=== PATIENT | male | born 1995 | race Caucasian/White ===

== ENCOUNTER → 2016-05-27 | Outpatient (CLI) | payer OTHER ==
--- NOTE | 2016-05-27 07:57 | US ---
EXAMINATION TYPE: US abdomen complete DATE OF EXAM: 05/27/2016 7:39 AM COMPARISON: on PACS CLINICAL HISTORY: K92.0 Hematemesis, R11.2 N V, R10.84 Abd Pain. Patient states vomiting with blood. EXAM MEASUREMENTS: Liver Length: 15.4 cm Gallbladder Wall: 0.2 cm CHD: 0.2 cm Spleen: 11.9 cm Right Kidney: 10.2 x 5.8 x 5.1 cm Left Kidney: 10.3 x 6.0 x 4.9 cm Suboptimal exam due to bowel gas Pancreas: not seen due to overlying bowel gas Liver: wnl Gallbladder: wnl Evidence for sonographic Good's sign: neg CHD: wnl Spleen: wnl Right Kidney: wnl Left Kidney: wnl Upper IVC: seen Abd Aorta: not well seen due to overlying bowel gas The liver is homogenous. The intrahepatic portion of the IVC and proximal abdominal aorta are within normal limits. There is no evidence of cholelithiasis. Common bile duct is unremarkable. The visu alized portions of the pancreas are homogenous. The spleen is unremarkable. Kidneys are symmetric a nd free of hydronephrosis. No renal lesions are seen. IMPRESSION: No distinct abnormality although examination is somewhat limited.
== END | disposition home or self-care (01) ==
LOC: RADUSWWP 07:04
PROVIDERS: ATTEND Pediatrics Adolescent Medicine
DX: K92.0 Hematemesis (principal); R10.84 Generalized abdominal pain
CPT/HCPCS: 76700

== ENCOUNTER 2017-01-28 08:47 | Emergency (ER) | payer OTHER ==
[2017-01-28 08:52] VITALS: BP 149/83; PULSE 100; RESP 20; TEMP 98.1
--- NOTE | 2017-01-28 09:10 | ED ---
Wound/Laceration HPI - General Chief Complaint: Wound/Laceration Stated Complaint: left thumb laceration Time Seen by Provider: 01/28/17 09:04 Source: patient, RN notes reviewed, old records reviewed Mode of arrival: ambulatory Limitations: no limitations - History of Present Illness Initial Comments: 21-year-old male presents emergency Department chief complaint of left thumb laceration. Patient reports he was at work cutting holes with a knife and that night slipped and cut the proximal aspect of his left thumb. He reports he has full range of motion with thumb. Last tetanus was one year ago. Patient states that he has no peripheral paresthesias. Patient denies any recent fever, chills, shortness of breath, chest pain, back pain, abdominal pain, nausea vomiting, numbness or tingling, dysuria or hematuria, constipation or diarrhea, headaches or visual changes, or any other current symptoms - Related Data Home Medications Medication Instructions Recorded Confirmed No Known Home Medications [No 01/28/17 01/28/17 Known Home Medications] Allergies Allergy/AdvReac Type Severity Reaction Status Date / Time No Known Allergies Allergy Verified 01/28/17 09:20 Review of Systems ROS Statement: Those systems with pertinent positive or pertinent negative responses have been documented in the HPI. ROS Other: All systems not noted in ROS Statement are negative. Past Medical History Past Medical History: No Reported History History of Any Multi-Drug Resistant Organisms: None Reported Past Surgical History: No Surgical Hx Reported Past Psychological History: Anxiety Smoking Status: Former smoker Past Alcohol Use History: None Reported Past Drug Use History: None Reported General Exam - General Exam Comments Initial Comments: 21-year-old male. No acute distress. Limitations: no limitations General appearance: alert, in no apparent distress Head exam: Present: atraumatic, normocephalic, normal inspection Eye exam: Present: normal appearance, PERRL, EOMI. Absent: scleral icterus, conjunctival injection, periorbital swelling ENT exam: Present: normal exam, mucous membranes moist Neck exam: Present: normal inspection. Absent: tenderness, meningismus, lymphadenopathy Respiratory exam: Present: normal lung sounds bilaterally. Absent: respiratory distress, wheezes, rales, rhonchi, stridor Cardiovascular Exam: Present: regular rate, normal rhythm, normal heart sounds. Absent: systolic murmur, diastolic murmur, rubs, gallop, clicks GI/Abdominal exam: Present: soft, normal bowel sounds. Absent: distended, tenderness, guarding, rebound, rigid Extremities exam: Present: normal inspection, full ROM, normal capillary refill. Absent: tenderness, pedal edema, joint swelling, calf tenderness Left Upper Arm exam: Present: normal inspection, full ROM Elbow exam: Present: normal inspection, full ROM Forearm Wrist exam: Present: normal inspection, full ROM Hand Wrist exam: Present: full ROM (Patient is a 1 cm laceration over the proximal thumb. Laceration is superficial. No tendon involvement. Full range of motion noted. Normal capillary refill.), laceration. Absent: normal inspection Neuro motor exam: Present: wrist extension intact, thumb opposition intact, thumb IP flexion intact, thumb adduction intact, fingers 2-5 abduction intact Neurosensory exam: Present: 2-point discrimination Back exam: Present: normal inspection Neurological exam: Present: alert, oriented X3, CN II-XII intact Psychiatric exam: Present: normal affect, normal mood Skin exam: Present: warm, dry, intact, normal color. Absent: rash Course Vital Signs 01/28/17 08:49 Temperature 98.1 F Pulse Rate 100 Respiratory 20 Rate Blood Pressure 149/83 O2 Sat by Pulse 98 Oximetry Procedures - Laceration Laceration #1 Size (cm): 1 Description: linear Anesthetic Used: lidocaine 1% Anesthesia Technique: local infiltration Amount (mls): 3 Pre-repair: wound explored Type of Sutures: nylon Size of Sutures: 5-0 Number of Sutures: 3 Technique: simple, interrupted Patient Tolerated Procedure: well, no complications Medical Decision Making - Medical Decision Making 21 IS emergency room to plan of left thumb laceration. Laceration measures approximately 1.5 cm. Laceration was irrigated and closed with 340 sutures. Discussed monitoring for any signs of infection including redness swelling or drainage. Well-developed proximal knee. No tendon involvement, patient has full range motion of the finger. Normal capillary refill. Patient will be discharged at this time with suture instructions. Patient understands history plan will comply. Disposition Clinical Impression: Thumb laceration Disposition: HOME SELF-CARE Condition: Good Instructions: Finger Laceration (ED) Additional Instructions: Please return to the emergency room in 8-10 days to have sutures removed. Please leave wound covered for the first 24-48 hours and then leave open to air after that time. Please use clean soap and water to clean the suture area to prevent scabbing over the top of your sutures. Please watch for any signs of infection which may include but not limited to increased pain, swelling, redness , fever or chills. Please return to the emergency room if any signs of infection do occur. Please return to the emergency room for any other concerns or complications. Referrals: Linh Rubalcava MD [Primary Care Provider] - 1-2 days Time of Disposition: 09:34
== END 2017-01-28 09:50 | disposition home or self-care (01) ==
LOC: EC 08:47
DX: S61.012A Laceration without foreign body of left thumb without damage to nail, initial encounter (principal); Z87.891 Personal history of nicotine dependence; W26.0XXA Contact with knife, initial encounter; Y99.0 Civilian activity done for income or pay; Y93.89 Activity, other specified; Y92.69 Other specified industrial and construction area as the place of occurrence of the external cause
CPT/HCPCS: 12001; 99283

== ENCOUNTER → 2017-09-25 | Outpatient (CLI) | payer MEDICAID, OTHER ==
--- NOTE | 2017-09-25 08:14 | US ---
EXAMINATION TYPE: US abdomen limited DATE OF EXAM: 09/25/2017 COMPARISON: US CLINICAL HISTORY: R10.84 abdominal pain, R11.10 vomiting; epigastric pain with or without food EXAM MEASUREMENTS: Liver Length: 15.0 cm Gallbladder Wall: 0.2 cm CBD: 0.4 cm Right Kidney: 9.5 x 6.1 x 4.7 cm Pancreas: small size and hyperechoic Liver: wnl Gallbladder: hyperechoic anterior wall polyp = 0.2 x 0.3 x 0.3cm with "comet tail" artifact Evidence for sonographic Good's sign: no CBD: wnl Right Kidney: wnl IMPRESSION: 1. Probable gallbladder polyp. 2. No gallstones or acute cholecystitis evident.
== END | disposition home or self-care (01) ==
LOC: RADUSWWP 07:11
PROVIDERS: ATTEND Pediatrics Adolescent Medicine
DX: R11.10 Vomiting, unspecified (principal); R10.84 Generalized abdominal pain
CPT/HCPCS: 76705

== ENCOUNTER → 2019-01-24 | Outpatient (CLI) | payer OTHER ==
--- NOTE | 2019-01-24 12:46 | XR ---
Right elbow HISTORY: Trauma and pain 3 views of the right elbow Bone mineralization, joint spaces and alignment are maintained. No evident pathologic joint effusion. IMPRESSION: No fracture or dislocation. Follow-up as indicated.
== END ==
LOC: RADXRMAIN 12:20
PROVIDERS: ATTEND Emergency Medicine
DX: S50.01XA Contusion of right elbow, initial encounter (principal)

== ENCOUNTER → 2019-01-31 | Outpatient (CLI) | payer OTHER ==
--- NOTE | 2019-01-31 10:57 | XR ---
EXAMINATION TYPE: XR elbow complete RT DATE OF EXAM: 01/31/2019 COMPARISON: NONE HISTORY: Pain FINDINGS: Three views of the elbow demonstrate no pathologic joint effusion. The osseous structures are intact . There is no acute fracture or dislocation. IMPRESSION: 1. No acute fracture or dislocation. If symptoms persist follow-up study in 7 to 10 days could be ob tained.
== END | disposition home or self-care (01) ==
LOC: RADXRMAIN 10:20
PROVIDERS: ATTEND Emergency Medicine
DX: S50.01XD Contusion of right elbow, subsequent encounter (principal)

== ENCOUNTER 2022-06-28 19:00 | Emergency (ER) | payer MEDICAID, OTHER ==
[2022-06-28 19:12] VITALS: BP 130/92; PULSE 96; RESP 20; TEMP 98.7
--- NOTE | 2022-06-28 19:14 | ED ---
General Adult HPI - General Chief complaint: Anxiety Stated complaint: panic attacks Time Seen by Provider: 06/28/22 19:13 Source: patient Mode of arrival: ambulatory Limitations: no limitations - History of Present Illness Initial comments: Patient presents to the ED complaining of anxiety. Patient states that he recently found out that his girlfriend was , and he states that he he has felt very anxious for the past 3 days or so. Patient states that they have lost pregnancies in the past, and he suspects that is why he is feeling anxious. Patient admits to having symptoms of anxiety and nausea. Patient admits to occasional marijuana use, but he denies any marijuana use today. Patient denies any other illicit drug use or alcohol use. Patient denies medication abuse or overdose. Patient denies suicidal ideations, homicidal ideations, hallucinations, fever or chills, any pain, dyspnea, dizziness, vomiting or diarrhea, or any other symptoms or complaints. - Related Data Previous Rx's Medication Instructions Recorded LORazepam [Ativan] 1 mg PO DAILY PRN #2 tab 06/28/22 Allergies Allergy/AdvReac Type Severity Reaction Status Date / Time zinc Allergy Rash/Hives Verified 06/28/22 19:12 Review of Systems ROS Statement: Those systems with pertinent positive or pertinent negative responses have been documented in the HPI. ROS Other: All systems not noted in ROS Statement are negative. Past Medical History Past Medical History: No Reported History History of Any Multi-Drug Resistant Organisms: None Reported Past Surgical History: No Surgical Hx Reported Past Psychological History: Anxiety Smoking Status: Vaper Past Alcohol Use History: None Reported Past Drug Use History: None Reported General Exam Limitations: no limitations General appearance: alert, in no apparent distress Head exam: Present: atraumatic, normocephalic Eye exam: Present: normal appearance, PERRL, EOMI ENT exam: Present: mucous membranes moist Respiratory exam: Present: normal lung sounds bilaterally. Absent: respiratory distress, wheezes, rales, rhonchi, stridor Cardiovascular Exam: Present: regular rate, normal rhythm, normal heart sounds, other (Normal radial pulses bilaterally) GI/Abdominal exam: Present: soft. Absent: distended, tenderness, guarding Extremities exam: Absent: pedal edema Neurological exam: Present: alert, oriented X3. Absent: motor sensory deficit Psychiatric exam: Present: anxious Skin exam: Present: warm, dry, intact, normal color Course Vital Signs 06/28/22 19:09 Temperature 98.7 F Pulse Rate 96 Respiratory 20 Rate Blood Pressure 130/92 O2 Sat by Pulse 98 Oximetry - Reevaluation(s) Reevaluation #1: 06/28/22 20:51 EPS nurse has seen/spoken with the patient in the ED. She states that she will provide the patient with outpatient [facility] referral. She has no further recommendations at this time. Medical Decision Making - Medical Decision Making Was pt. sent in by a medical professional or institution (, [facility], LABOR AND DELIVERY REGISTERED NURSE, urgent care, hospital, or [facility]...) When possible be specific @ -No Did you speak to anyone other than the patient for history (EMS, parent, family, police, friend...)? What history was obtained from this source @ -No Did you review nursing and triage notes (agree or disagree)? Why? @ -I reviewed and agree with nursing and triage notes Were old charts reviewed (outside hosp., previous admission, EMS record, old EKG, old radiological studies, urgent care reports/EKG's, [facility] records)? Report findings @ -No old charts were reviewed Differential Diagnosis (chest pain, altered mental status, abdominal pain women, abdominal pain men, vaginal bleeding, weakness, fever, dyspnea, syncope, headache, dizziness, GI bleed, back pain, seizure, CVA, palpatations, mental health, musculoskeletal)? @ -Anxiety, depression, mental health disease, panic disorder, PTSD, a call abuse, drug abuse, bipolar disorder EKG interpreted by me (3pts min.). @ -None done X-rays interpreted by me (1pt min.). @ -None done CT interpreted by me (1pt min.). @ -None done U/S interpreted by me (1pt. min.). @ -None done What testing was considered but not performed or refused? (CT, X-rays, U/S, labs)? Why? @ -None What meds were considered but not given or refused? Why? @ -None Did you discuss the management of the patient with other professionals (professionals i.e. [facility] Erwin, LABOR AND DELIVERY REGISTERED NURSE, lab, RT, psych nurse, social services manager, marketing analytics analyst, teacher, chief strategy officer, corrections caseworker)? Give summary @ -No Was smoking cessation discussed for >3mins.? @ -No Was critical care preformed (if so, how long)? @ -No Were there social determinants of health that impacted care today? How? (Homelessness, low income, unemployed, alcoholism, drug addiction, transportation, low edu. Level, literacy, decrease access to med. care, group home, rehab)? @ -No Was there de-escalation of care discussed even if they declined (Discuss DNR or withdrawal of care, Hospice)? DNR status @ -No What co-morbidities impacted this encounter? (DM, HTN, Smoking, COPD, CAD, Cancer, CVA, ARF, Chemo, Hep., AIDS, mental health diagnosis, sleep apnea, morbid obesity)? @ -None Was patient admitted / discharged? Hospital course, mention meds given and route, prescriptions, significant lab abnormalities, going to OR and other pertinent info. @ -Patient was treated with a dose of oral Ativan in the ED. Patient was seen/evaluated by EPS nurse in the ED. Patient was provided with referral information for [facility]. Patient was also provided with a prescription for 2 pills of Ativan to take as needed for anxiety. Will discharge patient home with his girlfriend at this time. Patient feels comfortable with this plan. Undiagnosed new problem with uncertain prognosis? @ -No Drug Therapy requiring intensive monitoring for toxicity (Heparin, Nitro, Insulin, Cardizem)? @ -No Were any procedures done? @ -No Diagnosis/symptom? @ -Anxiety Acute, or Chronic, or Acute on Chronic? @ -[Acute Uncomplicated (without systemic symptoms) or Complicated (systemic symptoms)? @ -Uncomplicated Side effects of treatment? @ -No Exacerbation, Progression, or Severe Exacerbation? @ -No Poses a threat to life or bodily function? How? (Chest pain, [place], [place], pneumonia, PE, COPD, DKA, ARF, appy, cholecystitis, CVA, Diverticulitis, Homicidal, Suicidal, threat to staff... and all critical care pts) @ -No Disposition Clinical Impression: Acute anxiety Disposition: HOME SELF-CARE Condition: Stable Instructions (If sedation given, give patient instructions): Generalized Anxiety Disorder (ED) Additional Instructions: Return to the ER immediately should you develop thoughts of hurting yourself or others, hallucinations, any significant pain, feeling dizzy or faint, shortness of breath, or new or worsening symptoms. Follow up closely with your primary care provider. Prescriptions: LORazepam [Ativan] 1 mg PO DAILY PRN #2 tab PRN Reason: Anxiety Is patient prescribed a controlled substance at d/c from ED?: No Referrals: None,Stated [Primary Care Provider] - 1-2 days Kervin Cortes DO [STAFF PHYSICIAN] - 1-2 days Time of Disposition: 20:58
[2022-06-28] MEDS ORDERED: LORazepam 1 MG TAB PO STA (19:20)
== END 2022-06-28 21:32 | disposition home or self-care (01) ==
LOC: EC 19:00
DX: F41.9 Anxiety disorder, unspecified (principal); F17.290 Nicotine dependence, other tobacco product, uncomplicated; Z91.048 Other nonmedicinal substance allergy status
CPT/HCPCS: 99283